=== PATIENT | male | born 1975 | race Caucasian/White ===

== ENCOUNTER 2019-09-01 15:08 | Emergency (ER) | payer BC, SELFPAY ==
[~2019-09-01] VITALS: Ht 172.7 cm; Wt 99.8 kg
[2019-09-01 15:12] VITALS: BP 189/99
[2019-09-01] MEDS ORDERED: ONDANSETRON 4 MG/2 ML VIAL IVP ONE (15:40)
[2019-09-01] MEDS ORDERED: NACL 0.9% 1,000 ML IV ONE (15:40)
--- NOTE | 2019-09-01 15:45 | NUR ---
PT AMBULATED TO BED 8. STEADY GAIT.
--- NOTE | 2019-09-01 15:50 | NUR ---
XR AT BEDSIDE.
--- NOTE | 2019-09-01 15:53 | NUR ---
PT PLACED ON 3 LEAD ECG AND PULSE OX.
--- NOTE | 2019-09-01 15:55 | NUR ---
44 Y/M PRESENTS TO ED FOR MID LOW ABD PAIN 02/24 X 2 DAY. PT REPORTS HE FEELS BLOATED AND CONSTIPATED. LAST BP WAS YESTERDAY AND LOOSE. PT ALSO REPORTS SUBJECTIVE FEVER X 2 DAY WHICH HE TOOK ADVIL FOR. PT HAD SOB YESTERDAY. PT ALSO HAS NAUSEA. DENIES ANY COUGH OR COLD SX. A&O X 4. RR EVEN AND UNLABORED. LUNGS CLEAR. ABD SOFT AND TENDER TO TOUCH. BS ACTIVE. DENIES UTI SX. SKIN IN TACT. DENIES ANY SICK CONTACTS AT HOME. PMH- GERD RX- ADVIL AND OMEPRAZOLE NKDA.
[2019-09-01 16:30] LABS: APPEARANCE,URINE CLEAR (CLEAR); BILIRUBIN,URINE 1+ (NEGATIVE); BLOOD, URINE NEGATIVE (NEGATIVE); COLOR,URINE YELLOW (YELLOW); LEUKOCYTE ESTERASE ,URINE NEGATIVE (NEGATIVE); NITRITE, URINE NEGATIVE (NEGATIVE); PH,URINE 8.5 (5.0-9.0); UGLUCOSE NEGATIVE (NEGATIVE)
[2019-09-01 16:33] LABS: BASOPHILS % (AUTO) 0.2 % (0.0-2.0); EOSINOPHILS # (AUTO) 0.1 K/uL (0-0.4); EOSINOPHILS % (AUTO) 0.8 % (0.0-4.0); HEMATOCRIT 41.2 % (36-52); HEMOGLOBIN 13.9 g/dL (12.0-18.0); LYMPHOCYTES # (AUTO) 1.9 K/uL (2.0-11.5); LYMPHOCYTES % (AUTO) 13.1 % (20.5-51.1); MEAN CORPUSCULAR HEMOGLOBIN 30 pg (27-31); MEAN CORPUSCULAR HGB CONC 34 g/dL (33-37); MEAN CORPUSCULAR VOLUME 87.4 fL (80-94); MONOCYTES # (AUTO) 0.9 K/uL (0.8-1.0); MONOCYTES % (AUTO) 5.8 % (1.7-9.3); NEUTROPHILS # (AUTO) 11.8 K/uL (1.8-7.7); NEUTROPHILS % (AUTO) 80.1 % (42.2-75.2); PLATELET COUNT (AUTO) 248 K/uL (140-450); RED BLOOD CELL COUNT(AUTO) 4.71 MIL/uL (4.20-6.10); RED CELL DISTRIBUTION WIDTH 13.3 % (11.6-13.7); WHITE BLOOD COUNT (AUTO) 14.7 K/uL (4.8-10.8)
[2019-09-01 17:00] LABS: ANION GAP 14.5 (8-16); CARBON DIOXIDE 25.2 mmol/L (21-32); CREATININE 0.8 mg/dL (0.6-1.3); POTASSIUM 3.7 mmol/L (3.5-5.1); TOTAL BILIRUBIN 1.4 mg/dL (0.0-1.0)
--- NOTE | 2019-09-01 18:23 | NUR ---
PT ALERT AND AWAKE, PT PENDING CT WITH CONTRAST, REQUIRING SIGNITURE
--- NOTE | 2019-09-01 18:43 | NUR ---
MOLLY OBTAINED CONSENT SIGNITURE FOR CT WITH CONTRAST FROM PT
--- NOTE | 2019-09-01 19:14 | NUR ---
RECEIVED REPORT FROM ULISES NIETO FOR CONTINUITY OF CARE.
[2019-09-01 19:19] LABS: RBC,URINE 0-5 /HPF (0-5); WBC,URINE 0-5 /HPF (0-5)
--- NOTE | 2019-09-01 19:21 | NUR ---
PT TRANSPORTED TO CT VIA [facility].
--- NOTE | 2019-09-01 19:31 | NUR ---
PT BACK FORM CT VIA [facility].
[2019-09-01] MEDS ORDERED: AMOXIL/CLAVULANATE 875/125 MG 1 TAB PO ONE (20:45)
[2019-09-01 21:35] VITALS: BP 117/75
== END 2019-09-01 21:24 | disposition home or self-care (01) ==
LOC: EEVIPCON 15:08 → MED 15:08
DX: K57.92 Diverticulitis of intestine, part unspecified, without perforation or abscess without bleeding (principal)
CPT/HCPCS: 36415; 71045; 74177; 80053; 81001; 83615; 83690; 84484; 84703; 85025; 85379; 87040; 96374; 99285; J2405; J7030; Q0092; Q9967; 99284